=== PATIENT | male | born 1945 | race Caucasian/White ===

== ENCOUNTER → 2017-12-08 09:47 | Outpatient (CLI) | payer MEDICARE, SELFPAY ==
--- NOTE | 2017-12-08 09:57 | XR_ITS ---
XR knee LT 3V HISTORY: Left knee pain, patient is in amplitude for left lower leg fracture which is imaged ITS.REASON: S/P LEFT LEG FX,LEFT KNEE PAIN ORDERING PHYSICIAN: Talha Webber PATIENT AGE: 72 years COMPARISON: None FINDINGS: Mild osteoarthritic changes are present involving the medial compartment and patellofemoral joint. No fracture or dislocation. No lytic or blastic change. 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
== END ==
PROVIDERS: PCP Internal Medicine; Visit Provider Internal Medicine
DX: M25.562 Pain in left knee (principal)
CPT/HCPCS: 73562

== ENCOUNTER 2018-01-25 12:27 | Outpatient (RCR) | payer MEDICARE, SELFPAY | END 2018-01-25 12:28 | disposition home or self-care (01) | LOC: PT 12:27 | PROVIDERS: PCP Internal Medicine; Visit Provider Orthopaedic Surgery | DX: S82.892A Other fracture of left lower leg, initial encounter for closed fracture (principal) | CPT/HCPCS: 97110; 97163 ==

== ENCOUNTER → 2018-12-27 08:54 | Outpatient (CLI) | payer MEDICARE, SELFPAY ==
--- NOTE | 2018-12-27 09:02 | US_ITS ---
US abdomen limited History: Ordering Physician:Talha Webber Patient Age: 73 years Comparison:None Findings:Common bile duct is normal measuring 3.7 mm. Pancreas:The visualized portions of the pancreas and IVC are normal. Liver:Unremarkable. No obvious mass or abnormal fluid collection. No ductal dilatation Right Kidney:Unremarkable. Normal size and echogenicity. No hydronephrosis Gallbladder:Prior cholecystectomy. Impression:Prior cholecystectomy. No acute process.
[2018-12-28 08:16] LABS: Iron 99 ug/dL (38-169); UIBC 180 ug/dL (111-343)
[2018-12-28 09:17] LABS: Hep A Ab, IgM Negative (Negative); Hepatitis B Core Antibody IgM Negative (Negative); Hepatitis B Surface Antigen Negative (Negative)
[2018-12-29 17:39] LABS: Hepatitis C Antibody <0.1 s/co ratio (0.0-0.9); Iron Saturation 35 % (15-55); Mitochondrial (M2) Antibody <20.0 Units (0.0-20.0)
== END ==
PROVIDERS: PCP Internal Medicine; Visit Provider Internal Medicine
DX: R74.8 Abnormal levels of other serum enzymes; R94.8 Abnormal results of function studies of other organs and systems
CPT/HCPCS: 36415; 76705; 80074; 83540; 83550; 86256

== ENCOUNTER → 2020-04-30 11:48 | Outpatient (CLI) | payer MEDICARE, SELFPAY ==
[2020-04-30 16:12] LABS: Coronavirus 19 IgG Antibody Negative (Negative); Coronavirus 19 IgM Antibody Negative (Negative)
== END ==
PROVIDERS: Visit Provider Ophthalmology
DX: Z01.818 Encounter for other preprocedural examination (principal); H26.9 Unspecified cataract
CPT/HCPCS: 36415; 86328

== ENCOUNTER 2020-05-01 08:47 | Day surgery (SDC) | payer MEDICARE, SELFPAY ==
--- NOTE | 2020-04-24 13:54 | SUR.PREOP ---
INstructed pt to go to Outpt lab for COVID screening on Thursday btwn 8-12. To call back to review information
[2020-04-27 14:41] VITALS: BMI 23.7
[2020-05-01 09:54] VITALS: BP 121/77; PULSE 62; RESP 18; TEMP 36.7; O2SAT 96
[2020-05-01 10:07] LABS: POC Glucose,Bedside 96 (70-110)
[2020-05-01 11:01] VITALS: BP 141/80; PULSE 60; RESP 18; O2SAT 97
[2020-05-01 11:06] VITALS: BP 136/74; PULSE 59; RESP 18; O2SAT 98
[2020-05-01 11:11] VITALS: BP 139/66; PULSE 58; RESP 20; O2SAT 98
[2020-05-01 11:16] VITALS: BP 146/73; PULSE 58; RESP 18; O2SAT 99
[2020-05-01 11:18] VITALS: BP 131/84; PULSE 69; RESP 18; TEMP 36.4; O2SAT 97
== END 2020-05-01 11:25 | disposition home or self-care (01) ==
LOC: OR 08:53
PROVIDERS: PCP Internal Medicine; Visit Provider Ophthalmology
DX: H25.813 Combined forms of age-related cataract, bilateral (principal); H35.3132 Nonexudative age-related macular degeneration, bilateral, intermediate dry stage; E11.9 Type 2 diabetes mellitus without complications; M19.90 Unspecified osteoarthritis, unspecified site; Z83.3 Family history of diabetes mellitus; Z83.511 Family history of glaucoma; Z83.518 Family history of other specified eye disorder; Z88.0 Allergy status to penicillin; Z90.49 Acquired absence of other specified parts of digestive tract
CPT/HCPCS: 66984; 82962; V2632

== ENCOUNTER → 2020-06-11 11:04 | Outpatient (CLI) | payer MEDICARE, MEDICAID, SELFPAY ==
[2020-06-11 15:49] LABS: Coronavirus 19 IgG Antibody Negative (Negative); Coronavirus 19 IgM Antibody Negative (Negative)
== END ==
PROVIDERS: Visit Provider Ophthalmology
DX: Z01.818 Encounter for other preprocedural examination (principal); Z03.818 Encounter for observation for suspected exposure to other biological agents ruled out; H25.12 Age-related nuclear cataract, left eye
CPT/HCPCS: 36415; 86328

== ENCOUNTER 2020-06-12 08:14 | Day surgery (SDC) | payer MEDICARE, MEDICAID, SELFPAY ==
[2020-06-05 10:58] VITALS: BMI 23.3
[2020-06-12 08:46] VITALS: BP 149/88; PULSE 61; RESP 18; TEMP 36.6; O2SAT 98
[2020-06-12 09:11] LABS: POC Glucose,Bedside 117 (70-110)
[2020-06-12 09:47] VITALS: BP 163/86; PULSE 63; RESP 16; O2SAT 97
[2020-06-12 09:52] VITALS: BP 159/86; PULSE 62; RESP 16; O2SAT 96
[2020-06-12 09:57] VITALS: BP 160/76; PULSE 61; RESP 16; O2SAT 95
[2020-06-12 10:02] VITALS: BP 157/82; PULSE 60; RESP 16; O2SAT 95
[2020-06-12 10:08] VITALS: BP 145/86; PULSE 55; RESP 18; TEMP 36.1; O2SAT 99
== END 2020-06-12 10:21 | disposition home or self-care (01) ==
LOC: OR 08:16
PROVIDERS: PCP Internal Medicine; Visit Provider Ophthalmology
DX: H25.813 Combined forms of age-related cataract, bilateral (principal); H35.3132 Nonexudative age-related macular degeneration, bilateral, intermediate dry stage
CPT/HCPCS: 66984; 82962; V2632

== ENCOUNTER → 2021-06-19 12:33 | Outpatient (CLI) | payer MEDICARE, MEDICAID, SELFPAY ==
[2021-06-19 13:56] LABS: Hemoglobin A1C 5.9 % (4.0-6.0)
[2021-06-19 14:12] LABS: Alanine Aminotransferase 18 U/L (12-78); Albumin/Globulin Ratio 1.5 (1.1-1.8); Alkaline Phosphatase 71 U/L (38-126); Anion Gap 6.7 mEq/L (5-15); Aspartate Amino Transferase 34 U/L (17-59); Bilirubin,Total 0.6 mg/dl (0.2-1.3); Blood Urea Nitrogen 15 mg/dl (9-20); Calcium 8.7 mg/dl (8.4-10.2); Carbon Dioxide 29 mmol/L (22.0-30.0); Chloride 105 mmol/L (98-107); Chol/HDL Ratio 4.6 (1-3.5); Cholesterol 217 mg/dl (140-200); Estimated Glomerular Filt Rate 82 ml/min (>60); GFR (African American) 100 ML/MIN (>60); Globulin 2.7 g/dL (1.3-3.2); Glucose 109 mg/dl (74-100); HDL Cholesterol 47 mg/dl (40-60); Potassium 4.7 mmoL/L (3.5-5.1); Sodium 136 mmol/L (136-145); Total Protein,Serum 6.7 g/dl (6.3-8.2); Triglycerides 113 mg/dl (30-150); VLDL Cholesterol 23 mg/dL (0-40)
[2021-06-19 14:23] LABS: Direct LDL Cholesterol 143.78 mg/dL (100-129)
== END ==
PROVIDERS: Visit Provider Internal Medicine
DX: E11.42 Type 2 diabetes mellitus with diabetic polyneuropathy (principal); E78.5 Hyperlipidemia, unspecified; J44.9 Chronic obstructive pulmonary disease, unspecified
CPT/HCPCS: 80053; 80061; 83036

== ENCOUNTER → 2021-10-25 08:58 | Outpatient (CLI) | payer MEDICARE, SELFPAY ==
--- NOTE | 2021-10-25 09:06 | CT_ITS ---
FINAL REPORT CLINICAL HISTORY: HEMATURIA FINDINGS: CT ABDOMEN & PELVIS W/O CONTRAST Axial CT images of the abdomen and pelvis were obtained without intravenous contrast. Coronal reformatted images were also obtained.This study was performed with techniques to keep radiation doses as low as reasonably achievable (ALARA). Individualized dose reduction techniques using automated exposure control or adjustment of mA and/or kV according to the patient's size were employed. Abdomen: There are calcified granulomas in the lung bases. There is mild scarring in the right lung base. There several less than 3 mm nonobstructing left renal stones. There is no hydronephrosis. The gallbladder surgically absent. There is moderate biliary ductal dilatation which is nonspecific and may be due to post cholecystectomy change. The liver, spleen and pancreas have an unremarkable, unenhanced appearance. No mass or adenopathy is seen. No inflammatory process is identified. There are moderate vascular calcifications. Pelvis: Images of the pelvis reveal no evidence of ureteral dilation or ureteral stone. The appendix is not seen. There is mild urinary bladder wall thickening. The prostate is diffusely enlarged with multiple calcifications. There is a large amount of retained stool. No mass or abnormal fluid collection is identified. There are postoperative changes in the bilateral pelvis. IMPRESSION: Several less than 3 mm nonobstructing left renal stones. No ureteral stone, or hydronephrosis. Diffusely enlarged prostate with multiple calcifications. Reviewed, Interpreted and Dictated by Kee Ruiz III, MD Transcribed by Elda Simons Authenticated by Kee Ruiz III, MD on 10/25/2021 10:23:46 AM [facility]
== END ==
PROVIDERS: PCP Internal Medicine; Visit Provider Internal Medicine
DX: R31.0 Gross hematuria (principal)
CPT/HCPCS: 74176

== ENCOUNTER → 2021-12-25 12:41 | Outpatient (CLI) | payer MEDICARE, SELFPAY ==
[2021-12-25 14:05] LABS: Basophils # 0.1 K/mm3 (0-0.2); Basophils % 1.4 % (0.1-2.0); Eosinophils # 0.2 K/mm3 (0.0-0.4); Eosinophils % 5.4 % (0.1-12.0); Hematocrit 42.7 % (42.0-52.0); Hemoglobin 14.2 g/dL (14.1-18.0); Lymphocytes # 1.3 K/mm3 (0.7-4.5); Lymphocytes % 34.4 % (10-50); Mean Corpuscular HGB Conc 33.2 g/dL (31.8-35.4); Mean Corpuscular Hemoglobin 31.9 pg (27.0-31.2); Mean Platelet Volume 8.2 fl (7.4-10.4); Monocytes # 0.4 K/mm3 (0.1-1.0); Monocytes % 11.3 % (1.7-9.3); Neutrophils # 1.8 K/mm3 (1.8-7.8); Neutrophils % 47.5 % (37.0-80.0); Platelet Count 192 K/mm3 (142-424); Red Blood Count 4.45 M/mm3 (4.60-6.20); Red Cell Distribution Width 13.2 % (11.5-17.5); White Blood Count 3.9 K/mm3 (4.8-10.8)
[2021-12-25 14:24] LABS: Hemoglobin A1C 5.9 % (4.0-6.0)
[2021-12-25 17:47] LABS: Alanine Aminotransferase 21 U/L (12-78); Albumin/Globulin Ratio 1.4 (1.1-1.8); Alkaline Phosphatase 73 U/L (38-126); Anion Gap 12.4 mEq/L (5-15); Aspartate Amino Transferase 32 U/L (17-59); Blood Urea Nitrogen 14 mg/dl (9-20); Calcium 9.1 mg/dl (8.4-10.2); Carbon Dioxide 27 mmol/L (22.0-30.0); Chloride 103 mmol/L (98-107); Chol/HDL Ratio 5.8 (1-3.5); Cholesterol 226 mg/dl (140-200); Estimated Glomerular Filt Rate 65 ml/min (>60); GFR (African American) 79 ML/MIN (>60); Globulin 2.8 g/dL (1.3-3.2); Glucose 99 mg/dl (74-100); HDL Cholesterol 39 mg/dl (40-60); Potassium 4.4 mmoL/L (3.5-5.1); Sodium 138 mmol/L (136-145); Total Protein,Serum 6.8 g/dl (6.3-8.2); Triglycerides 132 mg/dl (30-150); VLDL Cholesterol 26 mg/dL (0-40)
[2021-12-25 17:58] LABS: Direct LDL Cholesterol 135.98 mg/dL (100-129)
[2021-12-25 18:06] LABS: Bilirubin,Total 0.1 mg/dl (0.2-1.3)
[2021-12-25 18:16] LABS: Prostate Specific Ag Screen 1.7 ng/ml (0.0-4.0)
== END ==
PROVIDERS: PCP Internal Medicine; Visit Provider Internal Medicine
DX: E11.42 Type 2 diabetes mellitus with diabetic polyneuropathy (principal); E78.5 Hyperlipidemia, unspecified; J44.9 Chronic obstructive pulmonary disease, unspecified; N40.1 Benign prostatic hyperplasia with lower urinary tract symptoms; Z12.5 Encounter for screening for malignant neoplasm of prostate
CPT/HCPCS: 80053; 80061; 83036; 85025; G0103

== ENCOUNTER → 2022-04-16 13:47 | Outpatient (CLI) | payer MEDICARE, SELFPAY | PROVIDERS: PCP Internal Medicine; Visit Provider Internal Medicine | DX: E11.42 Type 2 diabetes mellitus with diabetic polyneuropathy (principal) ==

== ENCOUNTER → 2022-07-15 12:32 | Outpatient (CLI) | payer MEDICARE, SELFPAY ==
[2022-07-15 13:49] LABS: Creatinine,Urine Random 41 mg/dL (Not Estab.)
[2022-07-15 13:53] LABS: Microalbumin/Creatinine Ratio 28.2
[2022-07-15 14:55] LABS: Chloride 103 mmol/L (98-107)
[2022-07-15 14:56] LABS: Potassium 4.4 mmoL/L (3.5-5.1); Sodium 137 mmol/L (136-145)
[2022-07-15 14:58] LABS: Alanine Aminotransferase 24 U/L (12-78); Albumin Level 4.3 g/dl (3.5-5.0); Albumin/Globulin Ratio 1.5 (1.1-1.8); Alkaline Phosphatase 70 U/L (38-126); Anion Gap 13.4 mEq/L (5-15); Aspartate Amino Transferase 31 U/L (17-59); Bilirubin,Total 0.4 mg/dl (0.2-1.3); Blood Urea Nitrogen 18 mg/dl (9-20); Carbon Dioxide 25 mmol/L (22.0-30.0); Cholesterol 239 mg/dl (140-200); Estimated Glomerular Filt Rate 65 ml/min (>60); GFR (African American) 79 ML/MIN (>60); Globulin 2.9 g/dL (1.3-3.2); Glucose 132 mg/dl (74-100); Total Protein,Serum 7.2 g/dl (6.3-8.2); Triglycerides 246 mg/dl (30-150); VLDL Cholesterol 49 mg/dL (0-40)
[2022-07-15 14:59] LABS: Calcium 8.6 mg/dl (8.4-10.2); Chol/HDL Ratio 6.3 (1-3.5); HDL Cholesterol 38 mg/dl (40-60)
[2022-07-15 15:16] LABS: Direct LDL Cholesterol 137.46 mg/dL (100-129)
== END ==
PROVIDERS: PCP Internal Medicine; Visit Provider Internal Medicine
DX: E11.42 Type 2 diabetes mellitus with diabetic polyneuropathy (principal); E78.5 Hyperlipidemia, unspecified; M54.42 Lumbago with sciatica, left side; M15.0 Primary generalized (osteo)arthritis
CPT/HCPCS: 80053; 80061; 82043; 82570; 83036

== ENCOUNTER 2023-07-17 16:55 | Outpatient (CLI) | payer MEDICARE, SELFPAY ==
[2023-07-17 17:47] LABS: Basophils % 0.9 % (0.1-2.0); Eosinophils # 0.2 K/mm3 (0.0-0.4); Eosinophils % 4.1 % (0.1-12.0); Hematocrit 43.1 % (42.0-52.0); Hemoglobin 14.7 g/dL (14.1-18.0); Lymphocytes # 1.8 K/mm3 (0.7-4.5); Lymphocytes % 38.1 % (10-50); Mean Corpuscular HGB Conc 34.2 g/dL (31.8-35.4); Mean Corpuscular Volume 93.7 fl (80-94); Mean Platelet Volume 8.9 fl (7.4-10.4); Monocytes # 0.5 K/mm3 (0.1-1.0); Monocytes % 9.4 % (1.7-9.3); Neutrophils # 2.3 K/mm3 (1.8-7.8); Neutrophils % 47.5 % (37.0-80.0); Platelet Count 198 K/mm3 (142-424); Red Blood Count 4.61 M/mm3 (4.60-6.20); Red Cell Distribution Width 13.2 % (11.5-17.5); White Blood Count 4.8 K/mm3 (4.8-10.8)
[2023-07-17 18:16] LABS: Chloride 104 mmol/L (98-107); Potassium 4.4 mmoL/L (3.5-5.1); Sodium 140 mmol/L (136-145)
[2023-07-17 18:18] LABS: Blood Urea Nitrogen 14 mg/dl (9-20); Estimated Glomerular Filt Rate 65 ml/min (>60); GFR (African American) 79 ML/MIN (>60)
[2023-07-17 18:19] LABS: Alanine Aminotransferase 29 U/L (12-78); Albumin Level 4.5 g/dl (3.5-5.0); Albumin/Globulin Ratio 1.4 (1.1-1.8); Alkaline Phosphatase 81 U/L (38-126); Anion Gap 13.4 mEq/L (5-15); Aspartate Amino Transferase 40 U/L (17-59); Bilirubin,Total 0.6 mg/dl (0.2-1.3); Calcium 9.1 mg/dl (8.4-10.2); Carbon Dioxide 27 mmol/L (22.0-30.0); Chol/HDL Ratio 6.2 (1-3.5); Cholesterol 260 mg/dl (140-200); Globulin 3.2 g/dL (1.3-3.2); Glucose 63 mg/dl (74-100); HDL Cholesterol 42 mg/dl (40-60); Total Protein,Serum 7.7 g/dl (6.3-8.2); Triglycerides 185 mg/dl (30-150); VLDL Cholesterol 37 mg/dL (0-40)
[2023-07-17 18:31] LABS: Direct LDL Cholesterol 153.37 mg/dL (100-129)
[2023-07-17 21:16] LABS: Prostate Specific Ag Screen 2.2 ng/ml (0.0-4.0)
== END 2023-07-17 23:59 ==
LOC: LAB.DROPOF 16:55
PROVIDERS: PCP Internal Medicine; Visit Provider Internal Medicine
DX: E11.42 Type 2 diabetes mellitus with diabetic polyneuropathy; E78.5 Hyperlipidemia, unspecified; M15.0 Primary generalized (osteo)arthritis; Z12.5 Encounter for screening for malignant neoplasm of prostate
CPT/HCPCS: 80053; 80061; 83036; 85025; G0103

== ENCOUNTER 2023-12-10 13:07 | Outpatient (CLI) | payer MEDICARE, SELFPAY ==
--- NOTE | 2023-12-10 13:11 | XR_ITS ---
FINAL REPORT CLINICAL HISTORY: hand pain 5th digit contracted FINDINGS: Right hand Three views were obtained. There is no acute fracture or dislocation. There are moderate degenerative changes. There is flexion deformity of the 5th digit. Chronic 5th metacarpal fracture is identified. No soft tissue abnormality is identified. IMPRESSION: Degenerative and chronic appearing findings. Flexion deformity of the 5th digit. Reviewed, Interpreted and Dictated by Kee Ruiz III, MD Transcribed by Grisel Chun Authenticated and [facility]
--- NOTE | 2023-12-10 13:11 | XR_ITS ---
FINAL REPORT CLINICAL HISTORY: hand pain 5th digit contracted FINDINGS: Left hand Three views were obtained. There is no acute fracture or dislocation. There are moderate degenerative changes. There is flexion deformity of the 5th digit. No soft tissue abnormality is identified. IMPRESSION: Moderate degenerative changes. Flexion deformity of the 5th digit. Reviewed, Interpreted and Dictated by Kee Ruiz III, MD Transcribed by Grisel Chun Authenticated and [facility]
== END 2023-12-10 23:59 | disposition home or self-care (01) ==
LOC: RAD 13:09
PROVIDERS: PCP Internal Medicine; Visit Provider Physician Assistant Surgical
DX: M79.641 Pain in right hand (principal); M79.642 Pain in left hand
CPT/HCPCS: 73130

== ENCOUNTER 2024-01-14 15:29 | Outpatient (CLI) | payer MEDICARE, SELFPAY ==
[2024-01-14 16:21] LABS: Alanine Aminotransferase 28 U/L (12-78); Albumin Level 4.6 g/dl (3.5-5.0); Albumin/Globulin Ratio 1.6 (1.1-1.8); Alkaline Phosphatase 80 U/L (38-126); Anion Gap 8.5 mEq/L (5-15); Aspartate Amino Transferase 36 U/L (17-59); Bilirubin,Total 0.5 mg/dl (0.2-1.3); Blood Urea Nitrogen 20 mg/dl (9-20); Calcium 9.4 mg/dl (8.4-10.2); Carbon Dioxide 30 mmol/L (22.0-30.0); Chloride 102 mmol/L (98-107); Chol/HDL Ratio 3.1 (1-3.5); Cholesterol 166 mg/dl (140-200); Estimated Glomerular Filt Rate 65 ml/min (>60); GFR (African American) 79 ML/MIN (>60); Globulin 2.8 g/dL (1.3-3.2); Glucose 98 mg/dl (74-100); HDL Cholesterol 53 mg/dl (40-60); Potassium 4.5 mmoL/L (3.5-5.1); Sodium 136 mmol/L (136-145); Total Protein,Serum 7.4 g/dl (6.3-8.2); Triglycerides 180 mg/dl (30-150); VLDL Cholesterol 36 mg/dL (0-40)
[2024-01-14 16:30] LABS: Hemoglobin A1C 5.8 % (4.0-6.0)
[2024-01-14 16:33] LABS: Direct LDL Cholesterol 71.36 mg/dL (100-129)
== END 2024-01-14 23:59 | disposition home or self-care (01) ==
LOC: LAB.DROPOF 15:29
PROVIDERS: PCP Internal Medicine; Visit Provider Internal Medicine
DX: E11.49 Type 2 diabetes mellitus with other diabetic neurological complication (principal); E78.5 Hyperlipidemia, unspecified
CPT/HCPCS: 80053; 80061; 83036

== ENCOUNTER 2024-07-14 14:20 | Outpatient (CLI) | payer MEDICARE, SELFPAY ==
[2024-07-14 17:43] LABS: Creatinine,Urine Random 48 mg/dL (Not Estab.)
[2024-07-14 18:01] LABS: Alanine Aminotransferase 36 U/L (12-78); Albumin Level 4.8 g/dl (3.5-5.0); Albumin/Globulin Ratio 1.9 (1.1-1.8); Alkaline Phosphatase 67 U/L (38-126); Anion Gap 10.6 mEq/L (5-15); Aspartate Amino Transferase 53 U/L (17-59); Bilirubin,Total 0.5 mg/dl (0.2-1.3); Blood Urea Nitrogen 20 mg/dl (9-20); Calcium 9.7 mg/dl (8.4-10.2); Carbon Dioxide 28 mmol/L (22.0-30.0); Chloride 102 mmol/L (98-107); Chol/HDL Ratio 3.7 (1-3.5); Cholesterol 176 mg/dl (140-200); Estimated Glomerular Filt Rate 59 ml/min (>60); GFR (African American) 71 ML/MIN (>60); Globulin 2.5 g/dL (1.3-3.2); Glucose 92 mg/dl (74-100); HDL Cholesterol 48 mg/dl (40-60); Potassium 4.6 mmoL/L (3.5-5.1); Sodium 136 mmol/L (136-145); Total Protein,Serum 7.3 g/dl (6.3-8.2); Triglycerides 115 mg/dl (30-150); VLDL Cholesterol 23 mg/dL (0-40)
[2024-07-14 18:12] LABS: Direct LDL Cholesterol 93.91 mg/dL (100-129)
[2024-07-14 19:20] LABS: Microalbumin/Creatinine Ratio 14.1
== END 2024-07-14 23:59 | disposition home or self-care (01) ==
LOC: LAB.DROPOF 07-15 10:09
PROVIDERS: PCP Internal Medicine; Visit Provider Internal Medicine
DX: E11.49 Type 2 diabetes mellitus with other diabetic neurological complication (principal); E78.5 Hyperlipidemia, unspecified; M15.0 Primary generalized (osteo)arthritis
CPT/HCPCS: 80053; 80061; 82043; 82570; 83036

== ENCOUNTER 2025-01-18 14:15 | Outpatient (CLI) | payer MEDICARE, SELFPAY ==
[2025-01-18 17:44] LABS: Alanine Aminotransferase 40 U/L (12-78); Albumin Level 4.7 g/dl (3.5-5.0); Albumin/Globulin Ratio 1.6 (1.1-1.8); Alkaline Phosphatase 70 U/L (38-126); Anion Gap 13.2 mEq/L (5-15); Aspartate Amino Transferase 45 U/L (17-59); Bilirubin,Total 0.7 mg/dl (0.2-1.3); Blood Urea Nitrogen 12 mg/dl (9-20); Calcium 9.6 mg/dl (8.4-10.2); Carbon Dioxide 25 mmol/L (22.0-30.0); Chloride 103 mmol/L (98-107); Cholesterol 183 mg/dl (140-200); Creatinine,Serum 1.10 mg/dl (0.66-1.25); Estimated Glomerular Filt Rate 65 ml/min (>60); GFR (African American) 78 ML/MIN (>60); Globulin 2.9 g/dL (1.3-3.2); Glucose 128 mg/dl (74-100); HDL Cholesterol 47 mg/dl (40-60); Potassium 4.2 mmoL/L (3.5-5.1); Sodium 137 mmol/L (136-145); Total Protein,Serum 7.6 g/dl (6.3-8.2); Triglycerides 283 mg/dl (30-150)
[2025-01-18 18:48] LABS: Hepatitis C Ab Qual. W/ RFX NEGATIVE (Negative)
[2025-01-18 19:03] LABS: Hemoglobin A1C 7.2 % (4.0-6.0)
--- OUTSIDE RECORDS SUMMARY | 2025-01-19 10:00 | XMS_ITS | Clinical Summary ---
Author Organization [facility] Address [address] [place] [id number] Phone Care Team Providers Care Doctor Chiropractic Name Role Phone Lucio Sheppard MD Primary Care Provider + [phone] Allergies Active Allergy Reactions Criticality Noted Date Comments Testosterone Diarrhea 11/29/2010 Penicillins Shortness Of Breath,Itching,Swelling Otnwatj-Bkn-Sws Reductase Inhibitors 09/05/2015 Medications Misc. Devices MiscIndications: ED (erectile dysfunction),Jonelle sang, decreased Glucose monitor strips to fit his machine check blood sugar daily 100 Each 5 3 Active ibuprofen (ADVIL;MOTRIN) 800 mg Oral TabletIndication s:DDD (degenerative disc disease), lumbar Take 1 Tab by mouth 3 times daily as needed. 90 Tab 4 5 Active diazePAM (VALIUM) 10 mg Oral TabletIndication s:Insomnia, persistent One at night for sleep 90 Tab 1 6 Active lisinopril (PRINIVIL;ZESTRI L) 2.5 mg Oral TabletIndication s:Essential hypertension Take 1 Tab by mouth daily. 30 Tab 2 6 Active Additional Information Patient not taking.Reason: Other, Reported on 01/26/2017 omeprazole (PRILOSEC) 20 mg Oral Capsule, Delayed Release(E.C.)Ind ications:Gastroe sophageal reflux disease without esophagitis Take 1 Cap by mouth every morning (before breakfast). otc 90 Cap 7 Active HYDROcodone-acet aminophen (NORCO) 5-325 mg Oral TabletIndication s:Chronic pain syndrome Take 1 Tab by mouth every 8 hours as needed for Pain. 90 Tab 7 Active Active Problems Patient Care Coordination No te Formatting of this note migh t be different from the original. No controlled medication uds failed LDL not at goal [facility] 08/19/12 07/18/13 CSTA/BENZO/SOAPP 05/24/12 Lloyd 04/03/16 [id number] Problem Noted Date Diagnosed Date Spinal stenosis at L4-L5 level 01/26/2017 Chronic kidney disease, stage I 02/16/2013 Low testosterone 10/04/2010 Other and unspecified hyperlipidemia 08/07/2009 DDD (degenerative disc disease), lumbar 08/07/19 10 Lumbago 08/07/2009 Generalized anxiety disorder 08/07/2009 Esophageal reflux 08/07/2009 Type 2 diabetes mellitus without complication Immunizations Immunization Administration Dates Next Due DTaP 08/02/2007 Hepatitis B, Unspecified Formulation 09/01/2006, 06/10/2006,03/17/2006 Influenza High Dose 03/31/2016 Influenza Vaccine, Unspecifi ed Formulation 06/18/2013,05/24/2012,06/09/2011,04/22,08/01/2009 Pneumococcal Polysaccharide 23 Valent 11/26/2011 Tdap 11/29/2010 Zoster 05/25/2013 Surgical History Surgery Date Site/Laterality Comments ROTATOR CUFF REPAIR 2003 left CHOLECYSTECTOMY 1987 HERNIA REPAIR x5 COLONOSCOPY 2011 polyps removed benign Medical History Medical History Date Comments GERD (gastroesophageal reflux disease) Neuropathy Diabetes mellitus (HCC) Social History Tobacco Use Types Packs/Day Years Used Date Smoking Tobacco: Never Cigarettes 1 40 Smokeless Tobacco: Never Alcohol Use Standard Drinks/Week Comments Yes 0 (1 standard drink = 0.6 oz pur e alcohol) beer Sex and Gender Information Value Date Recorded Sex Assigned at Not on file Legal Sex Male 6:42 AM EDT Gender Identity Not on file Sexual Orientation Not on file Obstetrics History Last Filed Vital Signs Vital Sign Reading Time Taken Comments Blood Pressure 140/90 01/26/2017 1:28 PM EDT Pulse 72 01/26/2017 1:28 PM EDT Temperature 36.7 C (98.1 F) 01/26/2017 1:28 PM EDT Respiratory Rate 14 01/26/2017 1:28 PM EDT Oxygen Saturation 97% 01/26/2017 1:28 PM EDT Inhaled Oxygen Concentration - - Weight 85.7 kg (189 lb) 01/26/2017 1:28 PM EDT Height 185.4 cm (6' 1 ) 01/26/2017 1:28 PM EDT Body Mass Index 24.94 01/26/2017 1:28 PM EDT Plan of Treatment Health Maintenance Due Date Last Done Comments Wellness Exam Medicare 1948 Kidney Health: uACR 1956 Diabetic Eye Exam 1964 Hepatitis C Screening 1964 Pneumococcal Vaccine 50+ (2 of 2 - PCV) 11/25/2012 11/26/2011 Zoster (2 of 3) 07/20/2013 05/25/2013 Hemoglobin A1c 03/07/2016 09/05/2015, 01/04, 07/18/2013, Additional history exists Kidney Health: eGFR 03/31/2017 03/31/2016, 09/05/2015, 01/30/2015, Additional history exists Lipids 03/31/2017 03/31/2016, 03/07, 09/05/2015, Additional history exists DTaP/TDaP/Td (3 - Td or Tdap) 11/29/2020 11/29/2010, 08/02/2007 RSV or 60+ (1 - 1-dose 75+ series) 2021 COVID-19 Vaccine ( - season) 2024 Influenza Vaccine (#1) 2025 6, 09/05/2015 (Declined), 06/18/2013, Additional history exists Hepatitis B Vaccine Completed 09/01/2006, 06/10/2006, 03/17/2006 Colon Cancer Screening Discontinued Colonoscopy Discontinued 09/25/2011 (Prev iously completed) Cologuard Discontinued FIT Discontinued Meningococcal B Vaccine Aged Out No l onger eligible based on patient's age to complete this topic Sigmoidoscopy Discontinued Virtual Colonography Discontinued Goals Goal Patient Goal Type Associated Problems Recent Progress Patient-Stated? Author Blood Pressure < 140/90 Blood Pressure 140/90(2016 1:28 PM EDT) No Gonzalo Magana MD BMI (Calculated) < 30 General 25(01/26/2017 1:28 PM EDT) No Tete Calixto, ZAHIDA Maintain a healthy diet, exercise regularly and maintain an ideal body weight General No Helen Solomon RMA HEMOGLOBIN A1C < 7.0 Result Component 7.6( 6 10:14 AM EST) No Tete Calixto LPN Procedures Procedure Name Priority Date/Time Associated Diagnosis Comments COMPREHENSIVE METABOLIC PANEL Routine 03/31/2016 9:42 AM EDT Physical exam, pre-employment Essential Hypertension Hyperlipidemia with target LDL less than 100 Type 2 diabetes mellitus without complication, without long-term current use of insulin (HCC) LIPID PANEL REFLEX Routine 03/31/2016 9: 42 AM EDT Physical exam, pre-employment Essential Hypertension Hyperlipidemia with target LDL less than 100 Type 2 diabetes mellitus without complication, without long-term current use of insulin (HCC) HEMOGLOBIN A1C Routine 09/05/2015 10:14 AM EST Type 2 diabetes mellitus without complication (HCC) from Last 3 Months or Most Recently Relevant to Health Maintenance Results * (ABNORMAL) LIPID PANEL REFLEX (03/31/2016 9:42 AM EDT) Cholesterol 281(H) <=200 mg/dL [facility] Comment: < 200 Desirable 200 - 239 Borderline High >= 240 High Triglyceride 181(H) <=150 mg/dL [facility] Comment: < 150 Normal 150 - 199 Borderline High 200 - 499 High >= 500 Very High HDL 51 >=40 mg/dL [facility] Comment: > 60 Optimal 40 - 60 Acceptable < 40 Low Blood specimen (specimen) UPPER LIMB STRUCTURE / Unknown 03/31/2016 9:42 AM EDT 03/31/2016 3:08 PM EDT us Viral Pedraza V, DO CHEMISTRY ORDERABLES Final Res ult [facility] [address] [place] [address] * (ABNORMAL) COMPREHENSIVE METABOLIC PANEL (03/31/2016 9:42 AM EDT) Pathologist [facility] Sodium 138 136 - 145 mmol/L [facility] Potassium 4.8 3.5 - 5.0 mmol/L [facility] Chloride 96(L) 98 - 107 mmol/L [facility] Total CO2 25 22 - 29 mmol/L [facility] Anion Gap 17(H) 7 - 16 mmol/L [facility] Calcium 10.1 8.8 - 10.2 mg/dL [facility] Glucose Lvl 199(H) 82 - 100 mg/dL [facility] BUN 13 8 - 23 mg/dL [facility] Creatinine 1.10 0.67 - 1.30 mg/dL [facility] Albumin 4.8(H) 3.2 - 4.6 gm/dL [facility] Total Protein 8.0 6.4 - 8.3 gm/dL [facility] Bili Total 0.6 0.1 - 1.4 mg/dL [facility] AST 29 <=40 IU/L [facility] ALT 37 <=41 IU/L [facility] Alk Phos 63 40 - 129 IU/L [facility] GFR Afr Am >60 [facility] GFR Non Afr Am >60 [facility] Blood specimen (specimen) UPPER LIMB STRUCTURE / Unknown 03/31/2016 9:42 AM EDT 03/31/2016 3:08 PM EDT us Viral Pedraza V, DO CHEMISTRY ORDERABLES Final Res ult [facility] [address] [place] [address] * (ABNORMAL) HEMOGLOBIN A1C (09/05/2015 10:14 AM EST) [facility] Hgb A1c 7.6(H) <=7.0 % [facility] Comment: Reference Interval for Hgb A1c Hgb A1c Interpretation < 6.0 Non-Diabetic Range 6.0 - 7.0 ADA Therapeutic Target > 7.0 Action suggested Blood specimen (specimen) UPPER LIMB STRUCTURE / Unknown 09/05/2015 10:14 AM EST 09/05/2015 1:53 PM EST us Viral Pedraza V, DO CHEMISTRY ORDERABLES Final Res ult [facility] [address] [place] [address] from Last 3 Months or Most Recently Relevant to Health Maintenance Insurance [place]ICARE [place] B [place]IC[place] B Care Teams Doctor Chiropractic Relationship Specialty Start Date End Date Lucio Sheppard MD [id number] [facility] [address] [place] [id number] PCP - General Pain Medicine-Interventional Pain Medicine 10/23/17
== END 2025-01-18 23:59 | disposition home or self-care (01) ==
LOC: LAB.DROPOF 01-19 09:57
PROVIDERS: PCP Internal Medicine; Visit Provider Internal Medicine
DX: E11.49 Type 2 diabetes mellitus with other diabetic neurological complication (principal); E78.5 Hyperlipidemia, unspecified; M15.0 Primary generalized (osteo)arthritis; Z11.4 Encounter for screening for human immunodeficiency virus [HIV]; Z11.59 Encounter for screening for other viral diseases; Z12.5 Encounter for screening for malignant neoplasm of prostate
CPT/HCPCS: 80053; 80061; 80074; 83036; 87389; G0103